=== PATIENT | male | born 1945 | race Caucasian/White ===

== ENCOUNTER 2017-09-05 23:59 | Inpatient (IN) ==
[2017-09-06] MEDS ORDERED: *HR* Morphine 2 MG/ML SYRINGE IVP PRN (00:55)
[2017-09-06] MEDS ORDERED: Acetaminophen 325 MG TABLET PO PRN (00:55)
[2017-09-06] MEDS ORDERED: Naloxone 0.4 MG/ML INJ IVP PRN (00:57)
[2017-09-06] MEDS ORDERED: Ketorolac 30 MG/ML VIAL IVP PRN (00:57)
[2017-09-06] MEDS ORDERED: Ondansetron 4 MG/2 ML VIAL IVP PRN (00:57)
[2017-09-06] MEDS ORDERED: *HR* Metoprolol 5 MG/5 ML VIAL IVP PRN ×2 (01:00→14:23)
--- NOTE | 2017-09-06 01:04 | Internal Med History&Physical ---
Date of Encounter: 09/06/17 Time of Encounter: 01:02 Assessment and Plan (1) Acute on chronic respiratory failure with hypoxia and hypercapnia Current visit: Yes Status: Acute Acute on chronic hypoxic hypercapnic respiratory failure secondary to acute COPD exacerbation and possible acute bacterial bronchitis Cannot rule out pneumonia at this point Repeat chest x-ray and continue Rocephin and azithromycin for now, May de- escalate antibiotic therapy at a later time Continue Solu-Medrol, BiPAP, may recheck another ABG Omeprazole for GI prophylaxis and subcutaneous heparin for DVT prophylaxis. The patient will be admitted as inpatient, expected to stay more than 2 midnights. DNR CC arrest DNI. Time spent on this admission 40 minutes, high risk due to respiratory failure (2) Acute exacerbation of COPD with asthma Current visit: Yes Status: Acute (3) Bronchitis Current visit: Yes Status: Acute (4) Accelerated hypertension Current visit: Yes Status: Acute Use hydralazine IV as needed (5) BPH (benign prostatic hyperplasia) Current visit: Yes Status: Acute Cannot take his Spiriva due to history of severe urinary retention, hold DuoNeb' s and use albuterol inhalers Qualifiers: Lower urinary tract symptom presence: unspecified whether lower urinary tract symptoms present Qualified Code(s): N40.0 - Benign prostatic hyperplasia without lower urinary tract symptoms Internal Medicine - H&P: HPI Chief complaint: Shortness of breath Admitted From: Emergency Dept History of present illness: Mr. Floyd is a 72 year old male with a past medical history of COPD oxygen dependent using 6 L at home, came transferred from [facility] complaining of difficulty breathing worse in the past 2 days. The patient complains of yellowish phlegm and low-grade fevers. At [facility], he desaturated down to 87 and had to be started on BiPAP due to severe hypercapnia. A pH showed a value of 7.34, PCO2 98 and a PO2 of 56. Hemoglobin was 9.6. Chest x-ray was reported as negative although no images or report has been sent from [facility] even though this was requested. Blood pressure was 157/80, heart rate is 128. Patient is a still in respiratory distress, was given Solu-Medrol and azithromycin. Denies any chest pain or other complaints. Past Med Surg Social Fam HX - Past Medical History Medical history: COPD (Oxygen dependent using 6 L), other (BPH and remote history of tobacco use until 1961) Psychiatric history: no psych history - Past Surgical History Surgical History: non-contributory (Cataracts) - Social History Smoking Status: Former smoker Packs per day: Until 1961 Smokeless Tobacco Status: No Alcohol use: none Drug use: none - Additional Family History Additional family history: Mother with unknown type of cancer Internal Medicine - H&P: Meds 3 Allergy/AdvReac Type Severity Reaction Status Date / Time tiotropium Allergy Back Pain Verified 09/06/17 00:18 [From Spiriva with HandiHaler] All Systems PM: A 10-system review of systems was performed and is negative for pertinent findings except as documented above in the HPI. Review of systems: Difficulty breathing, other systems out of the 10 review were negative. Patient has an adverse reaction to Spiriva with severe urinary retention - Constitutional Vitals: Temp Pulse Resp BP Pulse Ox 99.1 F 117 20 149/88 97 09/05/17 23:52 09/05/17 23:52 09/06/17 00:00 09/05/17 23:52 09/06/17 00:00 General appearance: Present: A&O X 3 - Head Head exam: Present: atraumatic, normocephalic - Eye Eye exam: Present: PERRL, conjuntiva pink, sclera anicteric Pupils: Present: PERRL - Neck Neck exam general surgery: Present: supple, trachea midline. Absent: lymphadenopathy - Respiratory Respiratory exam: Present: decreased breath sounds (Bilateral chest with severely diminished breath sounds in mild diffuse wheezing), CTAB. Absent: accessory muscle use, rales, rhonchi, wheezes - Cardiovascular Cardiovascular exam: Present: RRR, +S1, +S2. Absent: diastolic murmur, gallop, rubs, systolic murmur - GI/Abdominal GI/Abdominal exam: Present: normal bowel sounds, soft, no peritoneal signs. Absent: distended, tenderness - Extremities Exam Extremities exam: Present: warm, radial pulses palpable and symmetrical. Absent : calf tenderness, cyanotic, pedal edema - Neurological Exam Neurological exam: Present: CN II-XII intact, oriented X3, no focal deficits. Absent: pronater drift, facial droop, speech deficit - Skin Skin exam: Present: dry, intact Internal Med - H&P Results - Labs Labs: Vital cell count 5.8, hemoglobin 9.6, hematocrit 29.7, platelet is 167, sodium 140 potassium 4.1 chloride 92, BUN 10 glucose 100 creatinine 0.57, calcium 9.2 AST 25 ALT 21 alkaline phosphatase 72 troponin 0.1
[2017-09-06] MEDS ORDERED: *HR* LORazepam 2 MG/ML VIAL ONE (01:35)
[2017-09-06] MEDS: Azithromycin 500 MG in D5% in Water 250 ML IVPB SCH ×2 (01:42→21:20)
[2017-09-06] MEDS: MethylPREDNISolone 40 MG/ML VIAL IVP SCH ×4 (01:42→22:58)
[2017-09-06] MEDS: 0.9 % Sodium Chloride 1,000 ML IVC SCH ×2 (01:43→13:56)
[2017-09-06] MEDS: *HR* LORazepam 2 MG/ML VIAL IVP PRN (01:44)
[2017-09-06] MEDS: Albuterol 2.5 MG/3 ML NEBULIZER IH SCH ×5 (03:24→20:57)
[2017-09-06 03:37] LABS: Hemoglobin 8.5 g/dL (12.9-16.9)
[2017-09-06 03:39] LABS: Hematocrit 29.2 % (37.5-50.1); Immature Platelets 4.8 % (1.1-6.1); Mean Corpuscular HGB Conc 29.1 g/dL (31.6-35.5); Mean Corpuscular Volume 109.8 fL (83.0-100.0); Mean Platelet Volume 10.4 fL (9.4-12.4); Red Blood Count 2.66 M/mcL (4.19-5.50); Red Cell Distribution Width 13.3 % (11.5-14.5)
[2017-09-06 04:35] LABS: BUN/Creatinine Ratio 23 (6-26); Blood Urea Nitrogen 12 mg/dL (8-23); Calcium 8.9 mg/dL (8.6-10.3); Carbon Dioxide 46 mEq/L (23-29); Chloride 87 mEq/L (98-107); Glucose 200 mg/dL (70-105); Osmolality,Calculated 285 (280-300); Potassium 4.4 mEq/L (3.5-5.1); Sodium 135 mEq/L (136-145); eGFR For African Americans > 60 (> 60); eGFR For Non-African Americans > 60 (> 60)
[2017-09-06] MEDS: *HR* Heparin 5,000 UNIT/ML VIAL SQ SCH ×3 (06:58→21:21)
[2017-09-06] MEDS: cefTRIAXone 1,000 MG in Water for inj. (sterile) 10 ML IVP SCH (09:17)
--- NOTE | 2017-09-06 13:06 | Event Note ---
Date of Encounter: 09/06/17 Time of Encounter: 13:20 Patient is a 72y/o male admitted for acute on chronic respiratory failure with hypoxia and hypercapnia, acute exacerbation of COPD and accelerated HTN. CTA chest negative for PE, reported right PNA continue empiric ABX, IV steroids, bronchodilator support O2 supplementation monitor O2 sat, goal O2 sat: 88-92% Hydralazine 10mg IV q6h PRN SBP>160 Metoprolol 10mg IV q6h prn HR>100 with SBP>120 labs and vitals reviewed bipap support as needed and at bedtime will continue to closely monitor
[2017-09-06] MEDS ORDERED: *HR* OxyCODONE/APAP 5/325 TABLET PO PRN ×2 (14:24→14:58)
[2017-09-07] MEDS: Albuterol 2.5 MG/3 ML NEBULIZER IH SCH ×4 (03:28→21:24)
[2017-09-07 04:35] LABS: Basophils % 0.1 %; Hematocrit 30.8 % (37.5-50.1)
[2017-09-07 04:36] LABS: Hemoglobin 8.7 g/dL (12.9-16.9); Immature Granulocytes % 0.6 % (0-4); Lymphocytes # 0.2 K/mcL (0.6-4.6); Mean Corpuscular HGB Conc 28.2 g/dL (31.6-35.5); Mean Corpuscular Hemoglobin 32.1 pg (28.0-33.3); Mean Corpuscular Volume 113.7 fL (83.0-100.0); Mean Platelet Volume 10.6 fL (9.4-12.4); Monocytes # 0.3 K/mcL (0.0-1.3); Monocytes % 2.6 %; Platelet Count 159 K/mcL (140-400); Red Blood Count 2.71 M/mcL (4.19-5.50); Red Cell Distribution Width 13.5 % (11.5-14.5); Segmented Neutrophils % 94.7 %
[2017-09-07 05:07] LABS: BUN/Creatinine Ratio 36 (6-26); Blood Urea Nitrogen 21 mg/dL (8-23); Calcium 9.1 mg/dL (8.6-10.3); Carbon Dioxide 50 mEq/L (23-29); Chloride 92 mEq/L (98-107); Glucose 132 mg/dL (70-105); Magnesium 2.3 mg/dL (1.6-2.6); Osmolality,Calculated 297 (280-300); Potassium 5.1 mEq/L (3.5-5.1); Sodium 141 mEq/L (136-145); eGFR For African Americans > 60 (> 60); eGFR For Non-African Americans > 60 (> 60)
[2017-09-07] MEDS: *HR* Heparin 5,000 UNIT/ML VIAL SQ SCH ×3 (05:08→21:01)
[2017-09-07 05:46] LABS: Anisocytosis 1+ (Not Present); Hypochromasia Present (Not Present); Macrocytosis Present (Not Present); Polychromasia 1+ (Not Present)
[2017-09-07 05:47] LABS: Platelet Estimate Normal (Normal)
[2017-09-07] MEDS: cefTRIAXone 1,000 MG in Water for inj. (sterile) 10 ML IVP SCH (08:32)
[2017-09-07] MEDS: MethylPREDNISolone 40 MG/ML VIAL IVP SCH ×3 (08:32→23:42)
[2017-09-07] MEDS: Finasteride 5 MG TABLET PO SCH (08:32)
[2017-09-07 09:24] LABS: ABG Base Excess 23 mEq/L (-2 to 3); ABG HCO3 53 mEq/L (21-27); ABG Oxygen Saturation 71 % (95-98); ABG PCO2 97 mmHg (35-45); ABG PH 7.34 pH Units (7.32-7.45); ABG PO2 43 mmHg (85-104); ABG TCO2 56 mEq/L (20-26)
--- NOTE | 2017-09-07 10:30 | Internal Med Progress Note ---
<Bruce Mcclain - Last Filed: 09/07/17 15:31> Date of Encounter: 09/07/17 Time of Encounter: 09:00 - Assessment and plan (1) Acute on chronic respiratory failure with hypoxia and hypercapnia Current Visit: Yes Status: Acute Assessment and plan: Patient has acute on chronic hypoxic hypercapnic respiratory failure secondary to acute COPD exacerbation with an acute bacterial bronchitis/pneumonia. Patient did have CT of his chest which did rule out pulmonary embolism but did show a right-sided pneumonia. Patient is on Rocephin and azithromycin. He is always on 6 L of oxygen at home since he does go to 8 sometimes when he sleeps. He feels like he does need this much oxygen at this time. Patient was transferred from outside hospital for this admission. There he had an ABG which showed a pH is 7.34, CO2 98, O2 56. Continue Solu-Medrol, BiPAP ABG has been repeated which shows continual hypercapnia but looks like he does metabolically compensated for repeat chest x- ray did not show a pneumonia but we will continue treating due to CT scan findings. We will decrease his oxygen to 3-4 L to keep his saturations around 92% to keep him from being hypercapnic. (2) Community acquired pneumonia Current Visit: Yes Status: Acute Assessment and plan: Patient does have an elevated white blood cell count but there is no leukocytosis. We will continue to treat for his pneumonia with Rocephin and azithromycin. Patient tolerating this well. On discharge we will consider sending home on azithromycin to complete the seven -day course. Qualifiers: Laterality: right Lung location: lower lobe of lung Qualified Code(s): J18.1 - Lobar pneumonia, unspecified organism (3) Acute exacerbation of COPD with asthma Current Visit: Yes Status: Acute Assessment and plan: See acute on chronic respiratory failure with hypoxia and hypercapnia. Patient chronically on 6 L of oxygen at home. Says he needs more at this time. Patient currently getting Solu-Medrol and BiPAP as needed. (4) Bronchitis Current Visit: Yes Status: Acute Assessment and plan: Currently being treated as bacterial with the pneumonia with Rocephin and azithromycin. We will continue to trend. (5) Accelerated hypertension Current Visit: Yes Status: Acute Assessment and plan: Patient does have history of hypertension. Will order hydralazine 10 mg if his blood pressure systolic is over 160, metoprolol 10 mg if heart rate is over 100 and systolic is over 120. We will continue to monitor. (6) BPH (benign prostatic hyperplasia) Current Visit: Yes Status: Chronic Assessment and plan: Patient does have history of BPH. He cannot take Spiriva due to history of severe urinary retention. She will hold to nebs and use albuterol inhalers only. We will continue giving patient his tamsulosin. Qualifiers: Lower urinary tract symptom presence: unspecified whether lower urinary tract symptoms present Qualified Code(s): N40.0 - Benign prostatic hyperplasia without lower urinary tract symptoms - Subjective Interval history: Patient states he is beginning to feel a little better but still has having a hard time breathing. He says he is short of breath. He is unable to catch his breath when he is on the BiPAP. Patient states he is always on 6 L of oxygen which is chronic for him. Patient states he has no fevers, chills, chest pain, diarrhea, constipation, pain with urination or any other changes. Patient otherwise has no complaints. There are no overnight events. - Constitutional Vitals: Temp Pulse Resp BP Pulse Ox 97.7 F 80 14 114/79 100 09/07/17 06:42 09/07/17 06:42 09/07/17 06:42 09/07/17 06:42 09/07/17 06:42 General appearance: Present: A&O X 3, no acute distress, answers questions appropriately - Head Head exam: Present: atraumatic, normocephalic - Eye Eye exam: Present: PERRL, conjuntiva pink, sclera anicteric Pupils: Present: PERRL - Neck Neck exam general surgery: Present: supple, trachea midline. Absent: lymphadenopathy - Respiratory Respiratory exam: Present: decreased breath sounds (Bilaterally), wheezes ( Bilateral wheezes.). Absent: accessory muscle use, rales, respiratory distress , rhonchi, stridor - Cardiovascular Cardiovascular exam: Present: RRR, +S1, +S2. Absent: diastolic murmur, gallop, rubs, systolic murmur - GI/Abdominal GI/Abdominal exam: Present: normal bowel sounds, soft, no peritoneal signs. Absent: distended, tenderness - Extremities Exam Extremities exam: Present: warm, radial pulses palpable and symmetrical. Absent : calf tenderness, cyanotic, pedal edema - Neurological Exam Neurological exam: Present: CN II-XII intact, oriented X3, no focal deficits. Absent: pronater drift, facial droop, speech deficit - Skin Skin exam: Present: dry, intact Internal Medicine: Result - Labs CBC & Chem 7: 09/07/17 03:26 09/07/17 03:26 Labs: Short CBC 09/07/17 Range/Units 03:26 WBC 10.6 D (4.3-11.1) K/mcL Hgb 8.7 L (12.9-16.9) g/dL Hct 30.8 L (37.5-50.1) % Plt Count 159 (140-400) K/mcL Neutrophils # 10.0 H (1.6-8.9) K/mcL BMP 09/07/17 03:26 Sodium 141 Potassium 5.1 Chloride 92 L Carbon Dioxide 50 H* BUN 21 Creatinine 0.59 L Glucose 132 H Calcium 9.1 - ABG Interpretation ABG results: ABG ABG pH 7.34 pH Units (7.32-7.45) 09/07/17 09:20 ABG pCO2 97 mmHg (35-45) H* 09/07/17 09:20 ABG pO2 43 mmHg (85-104) L* 09/07/17 09:20 ABG O2 Saturation 71 % (95-98) L 09/07/17 09:20 Consult Discharge Plan - Plan Referrals: Liane Mckeon MD [Primary Care Provider] - <Nic Prabhakaraju T - Last Filed: 09/07/17 16:58> Date of Encounter: 09/07/17 - Constitutional Vitals: Temp Pulse Resp BP Pulse Ox 97.9 F 97 16 113/67 100 09/07/17 14:53 09/07/17 14:53 09/07/17 16:52 09/07/17 14:53 09/07/17 16:52 Internal Medicine: Result - Labs CBC & Chem 7: 09/07/17 03:26 09/07/17 03:26 Labs: Short CBC 09/07/17 Range/Units 03:26 WBC 10.6 D (4.3-11.1) K/mcL Hgb 8.7 L (12.9-16.9) g/dL Hct 30.8 L (37.5-50.1) % Plt Count 159 (140-400) K/mcL Neutrophils # 10.0 H (1.6-8.9) K/mcL BMP 09/07/17 03:26 Sodium 141 Potassium 5.1 Chloride 92 L Carbon Dioxide 50 H* BUN 21 Creatinine 0.59 L Glucose 132 H Calcium 9.1 - ABG Interpretation ABG results: ABG ABG pH 7.34 pH Units (7.32-7.45) 09/07/17 09:20 ABG pCO2 97 mmHg (35-45) H* 09/07/17 09:20 ABG pO2 43 mmHg (85-104) L* 09/07/17 09:20 ABG O2 Saturation 71 % (95-98) L 09/07/17 09:20 - Impressions Impressions Chest X-Ray 09/07/17 10:17 IMPRESSION: Stable chest with emphysematous changes in the lungs. No acute cardiopulmonary process is identified. D/ / Azam Barajas MD / Azam Barajas MD Interpreting Provider: Azam Barajas MD - Attending Attestation I examined this patient and my medical decision-making was reviewed with the Resident Physician on 09/07/17. I agree with the documented findings, disposition and treatment plan as described except to the extent set forth below. Seen and examined at the bedside 72-year-old male with medical history of chronic respiratory failure on home oxygen. He is admitted at being managed for acute on chronic hypoxic and hypercapnic respiratory failure secondary to COPD exacerbation and pneumonia. In addition, he has metabolic alkalosis, hypercapnia and patient is a chronic retainer. He denies new complaints. Physical examination is remarkable for cachexia, diminished air entry bilaterally with additional wheezes transmitted breath sounds. Labs and imaging reviewed CBC is unremarkable metabolic alkalosis with a serum bicarbonate of 50. ABG noted for PCO2 of 90. PH is normal. Plan is to continue current care, ensure use of BiPAP, social work evaluation for BiPAP at home. Goal Oxygen saturation is 88-92%. GIve 500cc bolus. Plan of care was discussed with the patient and he verbalizes understanding. Rest of details as in the resident physicians documentation.
[2017-09-07] MEDS: Azithromycin 500 MG in D5% in Water 250 ML IVPB SCH (21:01)
[2017-09-08] MEDS: Albuterol 2.5 MG/3 ML NEBULIZER IH SCH ×4 (03:34→22:18)
[2017-09-08] MEDS: *HR* Heparin 5,000 UNIT/ML VIAL SQ SCH ×3 (05:15→21:40)
[2017-09-08 07:21] LABS: Basophils % 0.1 %; Hemoglobin 9.3 g/dL (12.9-16.9)
[2017-09-08 07:23] LABS: Hematocrit 33.6 % (37.5-50.1); Immature Granulocytes % 0.6 % (0-4); Lymphocytes # 0.3 K/mcL (0.6-4.6); Mean Corpuscular HGB Conc 27.7 g/dL (31.6-35.5); Mean Corpuscular Hemoglobin 31.2 pg (28.0-33.3); Mean Corpuscular Volume 112.8 fL (83.0-100.0); Mean Platelet Volume 10.1 fL (9.4-12.4); Monocytes # 0.4 K/mcL (0.0-1.3); Monocytes % 3.1 %; Neutrophils # 11.9 K/mcL (1.6-8.9); Platelet Count 183 K/mcL (140-400); Red Blood Count 2.98 M/mcL (4.19-5.50); Red Cell Distribution Width 13.6 % (11.5-14.5); Segmented Neutrophils % 94.2 %
[2017-09-08] MEDS: MethylPREDNISolone 40 MG/ML VIAL IVP SCH ×2 (07:33→17:22)
[2017-09-08] MEDS: Finasteride 5 MG TABLET PO SCH (07:33)
[2017-09-08] MEDS: cefTRIAXone 1,000 MG in Water for inj. (sterile) 10 ML IVP SCH (07:33)
--- NOTE | 2017-09-08 08:12 | Internal Med Progress Note ---
<Bruce Mcclain - Last Filed: 09/08/17 12:26> Date of Encounter: 09/08/17 Time of Encounter: 08:12 - Assessment and plan (1) Acute on chronic respiratory failure with hypoxia and hypercapnia Current Visit: Yes Status: Acute Assessment and plan: Patient has acute on chronic hypoxic hypercapnic respiratory failure secondary to acute COPD exacerbation with an acute bacterial bronchitis/pneumonia. Patient did have CT of his chest which did rule out pulmonary embolism but did show a right-sided pneumonia. Patient is on Rocephin and azithromycin. He is always on 6 L of oxygen at home since he does go to 8 sometimes when he sleeps. He feels like he does need this much oxygen at this time. Patient was transferred from outside hospital for this admission. There he had an ABG which showed a pH is 7.34, CO2 98, O2 56. Continue Solu-Medrol, BiPAP ABG has been repeated which shows continual hypercapnia but looks like he does metabolically compensated for repeat chest x- ray did not show a pneumonia but we will continue treating due to CT scan findings. We will decrease his oxygen to 3-4 L to keep his saturations around 92% to keep him from being hypercapnic. He will continue to use bi-pap as needed to help with is breathing. Due to patient slightly hard time breathing and not progressing as well as he would like this could be end-stage COPD. We will get pulmonology consultation. We will await their recommendations (2) Community acquired pneumonia Current Visit: Yes Status: Acute Assessment and plan: Patient does have an elevated white blood cell count but there is no leukocytosis. We will continue to treat for his pneumonia with Rocephin and azithromycin. Day 2 of rocephin and azithromycin Patient tolerating this well. On discharge we will consider sending home on azithromycin to complete the seven -day course. Qualifiers: Laterality: right Lung location: lower lobe of lung Qualified Code(s): J18.1 - Lobar pneumonia, unspecified organism (3) Acute exacerbation of COPD with asthma Current Visit: Yes Status: Acute Assessment and plan: See acute on chronic respiratory failure with hypoxia and hypercapnia. Patient chronically on 6 L of oxygen at home. Says he needs more at this time. Patient currently getting Solu-Medrol and BiPAP as needed. We will continue to ween down so he becomes less hypercapneic (4) Bronchitis Current Visit: Yes Status: Acute Assessment and plan: Currently being treated as bacterial with the pneumonia with Rocephin and azithromycin. We will continue to trend. (5) Accelerated hypertension Current Visit: Yes Status: Acute Assessment and plan: Patient does have history of hypertension. Will order hydralazine 10 mg if his blood pressure systolic is over 160, metoprolol 10 mg if heart rate is over 100 and systolic is over 120. We will continue to monitor. (6) BPH (benign prostatic hyperplasia) Current Visit: Yes Status: Chronic Assessment and plan: Patient does have history of BPH. He cannot take Spiriva due to history of severe urinary retention. She will hold to nebs and use albuterol inhalers only. We will continue giving patient his tamsulosin. Qualifiers: Lower urinary tract symptom presence: unspecified whether lower urinary tract symptoms present Qualified Code(s): N40.0 - Benign prostatic hyperplasia without lower urinary tract symptoms - Subjective Interval history: Patient states he is the same as yesterday no better or worse. He is still short of breath and now that we are weenign his oxygen down to help with hypercapnia he says he feels like he can't breath and needs more oxygen. He had to use bipap overnight which does help him feel better. Pt other christie is not having any chest pain, abdominal pain, fevers, chills, changes in bowel movements, pain with urination or any other symptoms. PT has no other complaints and there were no overnight events. - Constitutional Vitals: Temp Pulse Resp BP Pulse Ox 97.5 F L 80 19 138/73 96 09/08/17 06:44 09/08/17 06:44 09/08/17 06:44 09/08/17 06:44 09/08/17 06:44 General appearance: Present: A&O X 3, no acute distress, answers questions appropriately - Head Head exam: Present: atraumatic, normocephalic - Eye Eye exam: Present: PERRL, conjuntiva pink, sclera anicteric Pupils: Present: PERRL - Neck Neck exam general surgery: Present: supple, trachea midline. Absent: lymphadenopathy - Respiratory Respiratory exam: Present: decreased breath sounds, prolonged expiratory phase, rhonchi (mild in bases bilaterally). Absent: accessory muscle use, rales, wheezes - Cardiovascular Cardiovascular exam: Present: RRR, +S1, +S2. Absent: diastolic murmur, gallop, rubs, systolic murmur - GI/Abdominal GI/Abdominal exam: Present: normal bowel sounds, soft, no peritoneal signs. Absent: distended, tenderness - Extremities Exam Extremities exam: Present: warm, radial pulses palpable and symmetrical. Absent : calf tenderness, cyanotic, pedal edema - Neurological Exam Neurological exam: Present: CN II-XII intact, oriented X3, no focal deficits. Absent: pronater drift, facial droop, speech deficit - Skin Skin exam: Present: dry, intact Internal Medicine: Result - Labs CBC & Chem 7: 09/08/17 07:06 09/08/17 07:06 Labs: Short CBC 09/08/17 Range/Units 07:06 WBC 12.6 H (4.3-11.1) K/mcL Hgb 9.3 L (12.9-16.9) g/dL Hct 33.6 L (37.5-50.1) % Plt Count 183 (140-400) K/mcL - ABG Interpretation ABG results: ABG ABG pH 7.34 pH Units (7.32-7.45) 09/07/17 09:20 ABG pCO2 97 mmHg (35-45) H* 09/07/17 09:20 ABG pO2 43 mmHg (85-104) L* 09/07/17 09:20 ABG O2 Saturation 71 % (95-98) L 09/07/17 09:20 - Impressions Impressions Chest X-Ray 09/07/17 10:17 IMPRESSION: Stable chest with emphysematous changes in the lungs. No acute cardiopulmonary process is identified. D/ / Azam Barajas MD / Azam Barajas MD Interpreting Provider: Azam Barajas MD Consult Discharge Plan - Plan Referrals: Liane Mckeon MD [Primary Care Provider] - <Jadon Prabhakar T - Last Filed: 09/08/17 14:41> Date of Encounter: 09/08/17 - Constitutional Vitals: Temp Pulse Resp BP Pulse Ox 97.4 F L 92 16 120/67 100 09/08/17 12:12 09/08/17 12:12 09/08/17 12:12 09/08/17 12:12 09/08/17 12:12 Internal Medicine: Result - Labs CBC & Chem 7: 09/08/17 07:06 09/08/17 07:06 Labs: Short CBC 09/08/17 Range/Units 07:06 WBC 12.6 H (4.3-11.1) K/mcL Hgb 9.3 L (12.9-16.9) g/dL Hct 33.6 L (37.5-50.1) % Plt Count 183 (140-400) K/mcL Neutrophils # 11.9 H (1.6-8.9) K/mcL BMP 09/08/17 07:06 Sodium 144 Potassium 4.4 Chloride 93 L Carbon Dioxide 51 H* BUN 25 H Creatinine 0.55 L Glucose 140 H Calcium 8.8 - ABG Interpretation ABG results: ABG ABG pH 7.34 pH Units (7.32-7.45) 09/07/17 09:20 ABG pCO2 97 mmHg (35-45) H* 09/07/17 09:20 ABG pO2 43 mmHg (85-104) L* 09/07/17 09:20 ABG O2 Saturation 71 % (95-98) L 09/07/17 09:20 - Attending Attestation I examined this patient and my medical decision-making was reviewed with the Resident Physician on 09/08/17. I agree with the documented findings, disposition and treatment plan as described except to the extent set forth below. Seen and examined at the bedside 72-year-old male with medical history of chronic respiratory failure on home oxygen. He is admitted at being managed for acute on chronic hypoxic and hypercapnic respiratory failure secondary to COPD exacerbation and pneumonia. In addition, he has metabolic alkalosis, hypercapnia and patient is a chronic retainer. He denies new complaints. He feels that he is more short of breath today than usual. He is still symptomatic, he is also saying he prefers to wear O2 and have it on 100%, despite education on the goal of his O2 Physical examination is remarkable for cachexia, diminished air entry bilaterally with additional wheezes transmitted breath sounds. NO rhonchi Labs and imaging reviewed Worsening metabolic alkalosis, ABG not repeated Plan is to consult pulmonology for this advanced COPDE, continue current care, ensure use of BiPAP with breaks for meals, social work evaluation for BiPAP at home. Goal Oxygen saturation is 88-92%. Replace potassium, repeat Chem am Rest of details as in the resident physicians documentation.
[2017-09-08 08:37] LABS: Sodium 144 mEq/L (136-145)
[2017-09-08 08:38] LABS: BUN/Creatinine Ratio 45 (6-26); Blood Urea Nitrogen 25 mg/dL (8-23); Calcium 8.8 mg/dL (8.6-10.3); Chloride 93 mEq/L (98-107); Glucose 140 mg/dL (70-105); Osmolality,Calculated 305 (280-300); Potassium 4.4 mEq/L (3.5-5.1); eGFR For African Americans > 60 (> 60); eGFR For Non-African Americans > 60 (> 60)
[2017-09-08 08:40] LABS: Carbon Dioxide 51 mEq/L (23-29)
[2017-09-08 08:43] LABS: Anisocytosis 1+ (Not Present); Macrocytosis Present (Not Present)
[2017-09-08 08:44] LABS: Hypochromasia Present (Not Present); Platelet Estimate Normal (Normal)
--- NOTE | 2017-09-08 12:56 | Pulmonology Consult Note ---
Date of Encounter: 09/08/17 Time of Encounter: 12:30 Assessment and Plan (1) Acute on chronic respiratory failure with hypoxia and hypercapnia Current Visit: Yes Status: Acute Patient coming with acute on chronic hypoxia and hypercapnic respiratory failure secondary to COPD exacerbation complicated by pneumonia once he is getting better patient will benefit from home BIPAP will need BIPAP qualification before discharge . To continue gentle diuresis as tolerated . (2) COPD with exacerbation Current Visit: Yes Status: Acute To continue with scheduled bronchodilators , steroids and antibiotics as outpatient he will need frequent follow up . (3) Community acquired pneumonia Current Visit: Yes Status: Acute To change to doxycycline and to continue ceftriaxone . Qualifiers: Laterality: right Lung location: lower lobe of lung Qualified Code(s): J18.1 - Lobar pneumonia, unspecified organism History of Present Illness Consult date: 09/08/17 Requesting physician: Bruce Mcclain Reason for consult: COPD, pneumonia Chief complaint: shortness of breadth History of present illness: 72 year old male with past medical history of end stage COPD , O2 dependent was admitted under hospitalist service for acute on chronic hypoxic and hypercapnic respiratory failure , COPD exacerbation complicated by pneumonia , patient was put on BIPAP slowly improving , patient is on BIPAP poor historian , say his shortness of breadth is slightly better ,denies any chest pain or tightness pulmonary was consulted for the managment of acute on chronic hypercapnic respiratory failure and COPD exacerbation for outpatient follow up. Past Med Surg Social Fam HX - Past Medical History Medical history: COPD (Oxygen dependent using 6 L), other (BPH and remote history of tobacco use until 1961) Psychiatric history: no psych history - Past Surgical History Surgical History: non-contributory (Cataracts) - Social History Smoking Status: Former smoker Packs per day: Until 1961 Smokeless Tobacco Status: No Alcohol use: none Drug use: none Medications and Allergies Albuterol Sulfate [Albuterol Inhaler] 1 - 2 puff IH Q6H PRN 09/06/17 [History] Alfuzosin HCl [Uroxatral] 10 mg PO DAILY 09/06/17 [History] Budesonide/Formoterol 160/4.5 [Symbicort 160/4.5] 2 puff IH BID 09/06/17 [ History] Finasteride [Proscar] 5 mg PO DAILY 09/06/17 [History] Naproxen [Naproxen] 500 mg PO BID 09/06/17 [History] Oxycodone HCl/Acetaminophen [Percocet 5-325 mg Tablet] 1 tab PO Q6H PRN [History] Tamsulosin [Flomax] 0.4 mg PO DAILY 09/06/17 [History] Umeclidinium [place] [Incruse Ellipta] 1 puff IH DAILY 09/06/17 [History] 3 Allergy/AdvReac Type Severity Reaction Status Date / Time tiotropium Allergy Back Pain Verified 09/06/17 00:18 [From Spiriva with HandiHaler] ROS unobtainable: due to mental status All Systems: A 10-system review of systems was performed and is negative for pertinent findings except as documented above in the HPI. Physical Examination Vital Signs: Vital Signs, Last 4 Hours Temp Pulse Resp BP Pulse Ox 09/08/17 12:12 97.4 F L 92 16 120/67 100 09/08/17 11:09 15 138/73 100 Effort: mildly labored Auscultation: bilateral: wheezes (scattered wheezes ) unable to assess due to mental status Results - Laboratory Findings CBC and BMP: 09/08/17 07:06 09/08/17 07:06 ABG ABG pH 7.34 pH Units (7.32-7.45) 09/07/17 09:20 ABG pCO2 97 mmHg (35-45) H* 09/07/17 09:20 ABG pO2 43 mmHg (85-104) L* 09/07/17 09:20 ABG O2 Saturation 71 % (95-98) L 09/07/17 09:20 Abnormal lab findings: Abnormal lab results WBC 12.6 K/mcL (4.3-11.1) H 09/08/17 07:06 RBC 2.98 M/mcL (4.19-5.50) L 09/08/17 07:06 Hgb 9.3 g/dL (12.9-16.9) L 09/08/17 07:06 Hct 33.6 % (37.5-50.1) L 09/08/17 07:06 MCV 112.8 fL (83.0-100.0) H 09/08/17 07:06 MCHC 27.7 g/dL (31.6-35.5) L 09/08/17 07:06 Neutrophils # 11.9 K/mcL (1.6-8.9) H 09/08/17 07:06 Lymphocytes # 0.3 K/mcL (0.6-4.6) L 09/08/17 07:06 Polychromasia 1+ (Not Present) A 09/07/17 03:26 Hypochromasia Present (Not Present) A 09/08/17 07:06 Anisocytosis 1+ (Not Present) A 09/08/17 07:06 Macrocytosis Present (Not Present) A 09/08/17 07:06 ABG pCO2 97 mmHg (35-45) H* 09/07/17 09:20 ABG pO2 43 mmHg (85-104) L* 09/07/17 09:20 ABG HCO3 53 mEq/L (21-27) H 09/07/17 09:20 ABG Total CO2 56 mEq/L (20-26) H 09/07/17 09:20 ABG O2 Saturation 71 % (95-98) L 09/07/17 09:20 ABG Base Excess 23 mEq/L (-2 to 3) H 09/07/17 09:20 Chloride 93 mEq/L (98-107) L 09/08/17 07:06 Carbon Dioxide 51 mEq/L (23-29) H* 09/08/17 07:06 BUN 25 mg/dL (8-23) H 09/08/17 07:06 Creatinine 0.55 mg/dL (0.70-1.30) L 09/08/17 07:06 BUN/Creatinine Ratio 45 (6-26) H 09/08/17 07:06 Glucose 140 mg/dL (70-105) H 09/08/17 07:06 Calculated Osmolality 305 (280-300) H 09/08/17 07:06 - Clinical Findings Intake & Output: Intake & Output 09/07/17 09/08/17 09/08/17 23:59 07:59 15:59 Intake Total 480 / 480 0 / 0 Output Total 500 / 500 350 / 350 175 / 175 Balance -20 / -20 -350 / -350 -175 / -175 Weight 50.7 kg Consult Discharge Plan - Plan Referrals: Liane Mckeon MD [Primary Care Provider] -
[2017-09-08 15:53] LABS: Adenovirus Not Detected (Not Detect); Bordetella Pertussis Not Detected (Not Detect); Chlamydophila pneumoniae Not Detected (Not Detect); Coronavirus 229E Not Detected (Not Detect); Coronavirus HKU1 Not Detected (Not Detect); Coronavirus NL63 Not Detected (Not Detect); Coronavirus OC43 Not Detected (Not Detect); Human Metapneumovirus Not Detected (Not Detect); Human Rhinovirus/Enterovirus Not Detected (Not Detect); Influenza A Subtype 2009 H1 Not Detected (Not Detect); Influenza A Untypeable Not Detected (Not Detect); Influenza B Not Detected (Not Detect); Mycoplasma pneumoniae Not Detected (Not Detect); Parainfluenza Virus 1 Not Detected (Not Detect); Parainfluenza Virus 2 Not Detected (Not Detect); Parainfluenza Virus 3 Not Detected (Not Detect); Parainfluenza Virus 4 Not Detected (Not Detect); Respiratory Syncytial Virus Not Detected (Not Detect)
[2017-09-08] MEDS: Budesonide/Formoterol 80/4.5 MDI IH SCH ×2 (15:56→22:18)
[2017-09-08] MEDS: Doxycycline 100 MG in 0.9 % Sodium Chloride Mini Bag 100 ML IVPB SCH (17:29)
[2017-09-09] MEDS: MethylPREDNISolone 40 MG/ML VIAL IVP SCH ×4 (00:36→23:40)
[2017-09-09] MEDS: Albuterol 2.5 MG/3 ML NEBULIZER IH SCH ×4 (03:59→21:44)
[2017-09-09] MEDS: *HR* Heparin 5,000 UNIT/ML VIAL SQ SCH ×3 (05:10→23:40)
[2017-09-09] MEDS ORDERED: Doxycycline 100 MG in 0.9 % Sodium Chloride Mini Bag 100 ML IVPB SCH (06:00)
[2017-09-09 06:06] LABS: Basophils % 0.1 %; Hemoglobin 9.5 g/dL (12.9-16.9); Mean Corpuscular HGB Conc 27.9 g/dL (31.6-35.5)
[2017-09-09 06:08] LABS: Hematocrit 34.1 % (37.5-50.1); Immature Granulocytes % 1.6 % (0-4); Lymphocytes # 0.3 K/mcL (0.6-4.6); Lymphocytes % 2.8 %; Mean Corpuscular Hemoglobin 31.6 pg (28.0-33.3); Mean Corpuscular Volume 113.3 fL (83.0-100.0); Mean Platelet Volume 10.4 fL (9.4-12.4); Monocytes # 0.3 K/mcL (0.0-1.3); Monocytes % 2.5 %; Neutrophils # 9.9 K/mcL (1.6-8.9); Platelet Count 183 K/mcL (140-400); Red Blood Count 3.01 M/mcL (4.19-5.50); Red Cell Distribution Width 13.4 % (11.5-14.5)
[2017-09-09 06:30] LABS: Hypochromasia Present (Not Present); Macrocytosis Present (Not Present); Platelet Estimate Normal (Normal)
[2017-09-09 06:34] LABS: BUN/Creatinine Ratio 45 (6-26); Blood Urea Nitrogen 25 mg/dL (8-23); Calcium 8.9 mg/dL (8.6-10.3); Chloride 94 mEq/L (98-107); Glucose 144 mg/dL (70-105); Osmolality,Calculated 307 (280-300); Potassium 4.9 mEq/L (3.5-5.1); Sodium 145 mEq/L (136-145); eGFR For African Americans > 60 (> 60); eGFR For Non-African Americans > 60 (> 60)
[2017-09-09 07:42] LABS: Carbon Dioxide > 45 mEq/L (23-29)
--- NOTE | 2017-09-09 08:03 | Internal Med Progress Note ---
<Bruce Mcclain - Last Filed: 09/09/17 14:56> Date of Encounter: 09/09/17 Time of Encounter: 08:03 - Assessment and plan (1) Acute on chronic respiratory failure with hypoxia and hypercapnia Current Visit: Yes Status: Acute Assessment and plan: Patient has acute on chronic hypoxic hypercapnic respiratory failure secondary to acute COPD exacerbation with an acute bacterial bronchitis/pneumonia. Patient did have CT of his chest which did rule out pulmonary embolism but did show a right-sided pneumonia. Patient is on Rocephin and azithromycin. He is always on 6 L of oxygen at home since he does go to 8 sometimes when he sleeps. He feels like he does need this much oxygen at this time. Patient was transferred from outside hospital for this admission. There he had an ABG which showed a pH is 7.34, CO2 98, O2 56. Continue Solu-Medrol, BiPAP ABG has been repeated which shows continual hypercapnia but looks like he does metabolically compensated for repeat chest x- ray did not show a pneumonia but we will continue treating due to CT scan findings. We will decrease his oxygen to 3-4 L to keep his saturations around 92% to keep him from being hypercapnic. He will continue to use bi-pap as needed to help with is breathing. Pulmonology recommendations are appreciated. He was changed from azithromycin to doxycycline. Also started on Symbicort inhalers. Did recommend outpatient follow-up after patient's hospital stay. They also recommended continuous BiPAP taking 2 hour breaks around feeding. These have all been started. (2) Community acquired pneumonia Current Visit: Yes Status: Acute Assessment and plan: Patient does have an elevated white blood cell count but there is no leukocytosis. We will continue to treat for his pneumonia with Rocephin and azithromycin. Day 3 of Rocephin. Today was changed to doxycycline from azithromycin. Patient tolerating this well. Qualifiers: Laterality: right Lung location: lower lobe of lung Qualified Code(s): J18.1 - Lobar pneumonia, unspecified organism (3) Acute exacerbation of COPD with asthma Current Visit: Yes Status: Acute Assessment and plan: See acute on chronic respiratory failure with hypoxia and hypercapnia. Patient chronically on 6 L of oxygen at home. Says he needs more at this time. Patient currently getting Solu-Medrol and BiPAP as needed. We will continue to ween down so he becomes less hypercapneic (4) Bronchitis Current Visit: Yes Status: Acute Assessment and plan: Currently being treated as bacterial with the pneumonia with Rocephin and azithromycin. We will continue to trend. (5) Accelerated hypertension Current Visit: Yes Status: Acute Assessment and plan: Patient does have history of hypertension. Will order hydralazine 10 mg if his blood pressure systolic is over 160, metoprolol 10 mg if heart rate is over 100 and systolic is over 120. We will continue to monitor. (6) BPH (benign prostatic hyperplasia) Current Visit: Yes Status: Chronic Assessment and plan: Patient does have history of BPH. He cannot take Spiriva due to history of severe urinary retention. She will hold to nebs and use albuterol inhalers only. We will continue giving patient his tamsulosin. Qualifiers: Lower urinary tract symptom presence: unspecified whether lower urinary tract symptoms present Qualified Code(s): N40.0 - Benign prostatic hyperplasia without lower urinary tract symptoms - Subjective Interval history: Patient states he is better than he was yesterday. Feels that he has had a little easier time breathing. He is still short of breath and now that we are weenign his oxygen down to help with hypercapnia he says he feels like he can't breath and needs more oxygen. He has been using BiPAP overnight as well as during the day only taking to her arrest per pulmonology's request. He says he does better when he is on the BiPAP. Pt other christie is not having any chest pain , abdominal pain, fevers, chills, changes in bowel movements, pain with urination or any other symptoms. PT has no other complaints and there were no overnight events. - Constitutional Vitals: Temp Pulse Resp BP Pulse Ox 97.8 F 90 14 152/90 100 09/09/17 04:53 09/09/17 04:53 09/09/17 04:53 09/09/17 04:53 09/09/17 04:53 General appearance: Present: A&O X 3, no acute distress, answers questions appropriately - Head Head exam: Present: atraumatic, normocephalic - Eye Eye exam: Present: PERRL, conjuntiva pink, sclera anicteric Pupils: Present: PERRL - Neck Neck exam general surgery: Present: supple, trachea midline. Absent: lymphadenopathy - Respiratory Respiratory exam: Present: decreased breath sounds, wheezes (Mild wheezes in the bases bilaterally). Absent: accessory muscle use, rales, respiratory distress, rhonchi - Cardiovascular Cardiovascular exam: Present: RRR, +S1, +S2. Absent: diastolic murmur, gallop, rubs, systolic murmur - GI/Abdominal GI/Abdominal exam: Present: normal bowel sounds, soft, no peritoneal signs. Absent: distended, tenderness - Extremities Exam Extremities exam: Present: warm, radial pulses palpable and symmetrical. Absent : calf tenderness, cyanotic, pedal edema - Neurological Exam Neurological exam: Present: CN II-XII intact, oriented X3, no focal deficits. Absent: pronater drift, facial droop, speech deficit - Skin Skin exam: Present: dry, intact Internal Medicine: Result - Labs CBC & Chem 7: 09/09/17 05:43 09/09/17 05:43 Labs: Short CBC 09/08/17 09/09/17 Range/Units 07:06 05:43 WBC 10.6 (4.3-11.1) K/mcL Hgb 9.5 L (12.9-16.9) g/dL Hct 34.1 L (37.5-50.1) % Plt Count 183 (140-400) K/mcL Neutrophils # 11.9 H 9.9 H (1.6-8.9) K/mcL BMP 09/08/17 09/09/17 07:06 05:43 Sodium 144 145 Potassium 4.4 4.9 Chloride 93 L 94 L Carbon Dioxide 51 H* > 45 H* BUN 25 H 25 H Creatinine 0.55 L 0.55 L Glucose 140 H 144 H Calcium 8.8 8.9 - ABG Interpretation ABG results: ABG ABG pH 7.34 pH Units (7.32-7.45) 09/07/17 09:20 ABG pCO2 97 mmHg (35-45) H* 09/07/17 09:20 ABG pO2 43 mmHg (85-104) L* 09/07/17 09:20 ABG O2 Saturation 71 % (95-98) L 09/07/17 09:20 Consult Discharge Plan - Plan Referrals: Liane Mckeon MD [Primary Care Provider] - <Jadon Prabhakar T - Last Filed: 09/09/17 16:33> Date of Encounter: 09/09/17 - Constitutional Vitals: Temp Pulse Resp BP Pulse Ox 97.7 F 92 16 126/77 98 09/09/17 12:00 09/09/17 12:00 09/09/17 15:23 09/09/17 12:00 09/09/17 15:23 Internal Medicine: Result - Labs CBC & Chem 7: 09/09/17 05:43 09/09/17 05:43 Labs: Short CBC 09/09/17 Range/Units 05:43 WBC 10.6 (4.3-11.1) K/mcL Hgb 9.5 L (12.9-16.9) g/dL Hct 34.1 L (37.5-50.1) % Plt Count 183 (140-400) K/mcL Neutrophils # 9.9 H (1.6-8.9) K/mcL BMP 09/09/17 05:43 Sodium 145 Potassium 4.9 Chloride 94 L Carbon Dioxide > 45 H* BUN 25 H Creatinine 0.55 L Glucose 144 H Calcium 8.9 - ABG Interpretation ABG results: ABG ABG pH 7.34 pH Units (7.32-7.45) 09/07/17 09:20 ABG pCO2 97 mmHg (35-45) H* 09/07/17 09:20 ABG pO2 43 mmHg (85-104) L* 09/07/17 09:20 ABG O2 Saturation 71 % (95-98) L 09/07/17 09:20 - Attending Attestation I examined this patient and my medical decision-making was reviewed with the Resident Physician on 09/09/17. I agree with the documented findings, disposition and treatment plan as described except to the extent set forth below. Seen and examined at the bedside 72-year-old male with medical history of chronic respiratory failure on home oxygen. He is admitted at being managed for acute on chronic hypoxic and hypercapnic respiratory failure secondary to COPD exacerbation and pneumonia. In addition, he has metabolic alkalosis, hypercapnia and patient is a chronic retainer. He denies new complaints. He feels that he is more short of breath today than usual. Pulmonology eval noted At this time, patient's COPD is end stage and he is educated about this Physical examination is remarkable for cachexia, diminished air entry bilaterally with no additional wheezes transmitted breath sounds. NO rhonchi, abdomen is soft and not tender, no pedal edema Labs and imaging reviewed Stable metabolic alkalosis, ABG not repeated Plan Repalce K BiPAP qualification overnight Continue current care Rest of details as in the resident physicians documentation
[2017-09-09] MEDS: Budesonide/Formoterol 80/4.5 MDI IH SCH ×2 (09:50→21:44)
[2017-09-09] MEDS: Finasteride 5 MG TABLET PO SCH (10:13)
[2017-09-09] MEDS: cefTRIAXone 1,000 MG in Water for inj. (sterile) 10 ML IVP SCH (10:13)
[2017-09-09] MEDS: Doxycycline 100 MG in 0.9 % Sodium Chloride Mini Bag 100 ML IVPB SCH ×2 (17:57→18:00)
--- NOTE | 2017-09-09 22:55 | Pulmonology Progress Note ---
Date of Encounter: 09/09/17 Time of Encounter: 14:00 Assessment and Plan (1) Acute on chronic respiratory failure with hypoxia and hypercapnia Current Visit: Yes Status: Acute secondary to COPD exacerbation please do home BIPAP qualification according to protocol (2) COPD with exacerbation Current Visit: Yes Status: Acute To continue bronchodilators , steroids and antibiotics on discharge will need 12 day taper of steroids , total 7 days of antibiotics will need duo neb nebulizer , Symbicort and Spiriva should follow up in 8 weeks after discharge either in [facility] or at [facility] patient preference (3) Community acquired pneumonia Current Visit: Yes Status: Acute Will continue antibiotics if getting better then start deescalating . Qualifiers: Laterality: right Lung location: lower lobe of lung Qualified Code(s): J18.1 - Lobar pneumonia, unspecified organism Subjective Principal diagnosis: COPD exacerbation Interval history: Patient is off BIPAP on Nasal cannula having his dinner his cough and sputum production is lot better , shortness of breadth is lot better. Objective PUL Vital signs: Last Vital Signs Temp 98.8 F 09/09/17 21:11 Pulse 113 09/09/17 21:11 Resp 19 09/09/17 21:11 BP 127/90 09/09/17 21:11 Pulse Ox 99 09/09/17 21:11 Auscultation: bilateral: wheezes Results - Laboratory Findings CBC and BMP: 09/09/17 05:43 09/09/17 05:43 ABG ABG pH 7.34 pH Units (7.32-7.45) 09/07/17 09:20 ABG pCO2 97 mmHg (35-45) H* 09/07/17 09:20 ABG pO2 43 mmHg (85-104) L* 09/07/17 09:20 ABG O2 Saturation 71 % (95-98) L 09/07/17 09:20 Abnormal lab findings: Abnormal lab results RBC 3.01 M/mcL (4.19-5.50) L 09/09/17 05:43 Hgb 9.5 g/dL (12.9-16.9) L 09/09/17 05:43 Hct 34.1 % (37.5-50.1) L 09/09/17 05:43 MCV 113.3 fL (83.0-100.0) H 09/09/17 05:43 MCHC 27.9 g/dL (31.6-35.5) L 09/09/17 05:43 Neutrophils # 9.9 K/mcL (1.6-8.9) H 09/09/17 05:43 Lymphocytes # 0.3 K/mcL (0.6-4.6) L 09/09/17 05:43 Polychromasia 1+ (Not Present) A 09/07/17 03:26 Hypochromasia Present (Not Present) A 09/09/17 05:43 Anisocytosis 1+ (Not Present) A 09/08/17 07:06 Macrocytosis Present (Not Present) A 09/09/17 05:43 ABG pCO2 97 mmHg (35-45) H* 09/07/17 09:20 ABG pO2 43 mmHg (85-104) L* 09/07/17 09:20 ABG HCO3 53 mEq/L (21-27) H 09/07/17 09:20 ABG Total CO2 56 mEq/L (20-26) H 09/07/17 09:20 ABG O2 Saturation 71 % (95-98) L 09/07/17 09:20 ABG Base Excess 23 mEq/L (-2 to 3) H 09/07/17 09:20 Chloride 94 mEq/L (98-107) L 09/09/17 05:43 Carbon Dioxide > 45 mEq/L (23-29) H* 09/09/17 05:43 BUN 25 mg/dL (8-23) H 09/09/17 05:43 Creatinine 0.55 mg/dL (0.70-1.30) L 09/09/17 05:43 BUN/Creatinine Ratio 45 (6-26) H 09/09/17 05:43 Glucose 144 mg/dL (70-105) H 09/09/17 05:43 Calculated Osmolality 307 (280-300) H 09/09/17 05:43 - Clinical Findings Intake & Output: Intake & Output 09/09/17 09/09/17 09/09/17 07:59 15:59 23:59 Intake Total 200 / 200 240 / 240 120 / 120 Output Total 400 / 400 275 / 275 450 / 450 Balance -200 / -200 -35 / -35 -330 / -330 Weight 51.4 kg Consult Discharge Plan - Plan Referrals: Liane Mckeon MD [Primary Care Provider] -
[2017-09-10 03:08] LABS: Basophils % 0.1 %; Hemoglobin 9.2 g/dL (12.9-16.9); Immature Granulocytes % 1.2 % (0-4); Mean Corpuscular Hemoglobin 31.6 pg (28.0-33.3); Red Blood Count 2.91 M/mcL (4.19-5.50)
[2017-09-10 03:10] LABS: Hematocrit 32.6 % (37.5-50.1); Immature Platelets 4.8 % (1.1-6.1); Lymphocytes # 0.2 K/mcL (0.6-4.6); Lymphocytes % 2.1 %; Mean Corpuscular HGB Conc 28.2 g/dL (31.6-35.5); Mean Platelet Volume 10.2 fL (9.4-12.4); Monocytes # 0.4 K/mcL (0.0-1.3); Monocytes % 4.2 %; Nucleated Red Blood Cells 0.2 /100 WBC (0); Platelet Count 200 K/mcL (140-400); Red Cell Distribution Width 13.4 % (11.5-14.5); Segmented Neutrophils % 92.4 %
[2017-09-10 03:40] LABS: BUN/Creatinine Ratio 38 (6-26); Blood Urea Nitrogen 24 mg/dL (8-23); Calcium 8.8 mg/dL (8.6-10.3); Carbon Dioxide 49 mEq/L (23-29); Chloride 96 mEq/L (98-107); Glucose 130 mg/dL (70-105); Osmolality,Calculated 304 (280-300); Potassium 4.7 mEq/L (3.5-5.1); Sodium 144 mEq/L (136-145); eGFR For African Americans > 60 (> 60); eGFR For Non-African Americans > 60 (> 60)
[2017-09-10 03:52] LABS: Hypochromasia Present (Not Present); Macrocytosis Present (Not Present); Platelet Estimate Normal (Normal)
[2017-09-10] MEDS: Albuterol 2.5 MG/3 ML NEBULIZER IH SCH ×3 (03:55→16:35)
[2017-09-10 06:27] VITALS: BP 119/90
[2017-09-10] MEDS: *HR* Heparin 5,000 UNIT/ML VIAL SQ SCH ×2 (06:50→14:07)
[2017-09-10] MEDS: Doxycycline 100 MG in 0.9 % Sodium Chloride Mini Bag 100 ML IVPB SCH (06:51)
--- NOTE | 2017-09-10 07:49 | Discharge Summary ---
<Bruce Mcclain - Last Filed: 09/10/17 09:45> Date of Encounter: 09/10/17 Time of Encounter: 07:48 - Discharge Diagnosis (1) Acute on chronic respiratory failure with hypoxia and hypercapnia Priority: Primary Status: Acute (2) Community acquired pneumonia Priority: Secondary Status: Acute Qualifiers: Laterality: right Lung location: lower lobe of lung Qualified Code(s): J18.1 - Lobar pneumonia, unspecified organism (3) Acute exacerbation of COPD with asthma Priority: Secondary Status: Acute (4) Bronchitis Priority: Secondary Status: Acute (5) Accelerated hypertension Priority: Secondary Status: Acute (6) BPH (benign prostatic hyperplasia) Priority: Secondary Status: Chronic Qualifiers: Lower urinary tract symptom presence: unspecified whether lower urinary tract symptoms present Qualified Code(s): N40.0 - Benign prostatic hyperplasia without lower urinary tract symptoms - Discharge Medications Prescriptions: Ipratropium/Albuterol Neb [Duoneb] 3 ml IH Q4HR #30 vial.neb Budesonide/Formoterol 80/4.5 [Symbicort 80/4.5] 2 puff IH BIDR #10 inhaler Cefdinir [Omnicef] 300 mg PO DAILY #7 capsule Doxycycline 100 mg PO BID #14 capsule predniSONE [PredniSONE] 10 mg PO DAILY #14 tablet Home Medications: Albuterol Sulfate [Albuterol Inhaler] 1 - 2 puff IH Q6H PRN 09/06/17 [History] Alfuzosin HCl [Uroxatral] 10 mg PO DAILY 09/06/17 [History] Budesonide/Formoterol 160/4.5 [Symbicort 160/4.5] 2 puff IH BID 09/06/17 [ History] Finasteride [Proscar] 5 mg PO DAILY 09/06/17 [History] Naproxen 500 mg PO BID 09/06/17 [History] Oxycodone HCl/Acetaminophen [Percocet 5-325 mg Tablet] 1 tab PO Q6H PRN [History] Tamsulosin [Flomax] 0.4 mg PO DAILY 09/06/17 [History] Umeclidinium [place] [Incruse Ellipta] 1 puff IH DAILY 09/06/17 [History] Budesonide/Formoterol 80/4.5 [Symbicort 80/4.5] 2 puff IH BIDR #10 inhaler 08/16 [Rx] Cefdinir [Omnicef] 300 mg PO DAILY #7 capsule 09/10/17 [Rx] Doxycycline 100 mg PO BID #14 capsule 09/10/17 [Rx] Ipratropium/Albuterol Neb [Duoneb] 3 ml IH Q4HR #30 vial.neb 09/10/17 [Rx] predniSONE [PredniSONE] 10 mg PO DAILY #14 tablet 09/10/17 [Rx] Allergies/Adverse Reactions: 3 Allergy/AdvReac Type Severity Reaction Status Date / Time tiotropium Allergy Back Pain Verified 09/06/17 00:18 [From Spiriva with [facility]] Date of admission: 09/06/17 00:57 Primary care physician: Liane Mendoza Consults: 09/06/17 00:18 Consult to Cattle Driver [CONS] Routine Reason for SW Consult: patient has oxygen therapy at home 09/08/17 12:26 Consult to Pulmonology [CONS] Routine Consulting Provider: [facility] Reason for Consult: End stage COPD Time Notified: 12:27 Call Completed: Yes Discharging clinician: Bruce Mcclain Anticipated date of discharge: 09/10/17 - Patient Status Disposition: Hospice - Home Condition: Fair Functional capacity at discharge: uses cane/walker Overall status at discharge: patient is not back to baseline - Discharge Instructions Follow Up With: Liane Mckeon MD [Primary Care Provider] - - Diet and Activity Activity: as per physical therapy, increase activity as tolerated, wear oxygen at all times Diet: advance to your usual diet Interval History: Patient evaluated today says that he is still short of breath but is little better from yesterday. He said whenever he is on BiPAP he feels much better. He is still short of breath and not having any chest pain. Having no fever chills, headaches, blurry vision, abdominal pain, changes in bowel movements, pain with urination. Did speak with patient about possibly going into hospice. He says that he would like to go onto hospice as he does need some home health care. He said he would prefer hospice versus home health as he does not want to come back to the hospital. There are no other complaints. There are no overnight event. Hospital course: Mr. Floyd is a 72 year old male with past history of COPD oxygen dependent using 6 L at home and came as a transfer from [facility] complaining of difficulty in breathing worse over the past 2 days. Patient complains of yellowish phlegm and low-grade fevers. At [facility] he desaturated and 87% and had restarted on BiPAP due to severe hypercapnia. ABG was done there pH showed a value of 7.34 PCO2 98 and a PO2 of 56. Hemoglobin was 9.6. Chest x-ray is reported as negative although no images reports having some from [facility]. Blood pressure was 157/80. Heart rate 128. He is in respirator distress is given slight meds on azithromycin prior to coming here. While here patient was continually hypercapnic he was in respirator distress due to this. We did trend wean his oxygen down to 4 L but patient said that he needed increases he was having a hard time breathing on that low oxygen we explained to him the importance of keeping his oxygen saturations around 92% of the patient said that he needed more action. We did place him on BiPAP which he did do very well with. Patient was placed on Solu-Medrol daily. He was on azithromycin and Rocephin. After pulmonology saw the patient they changed to azithromycin to doxycycline. Patient's leukocytosis did better after being on antibiotics Due to patient's advancing COPD we did consult pulmonology who said patient needed to be BiPAP qualified which he did overnight. They wanted to continue bronchodilators and steroids and antibiotics and discharged as he will need a 12 day taper steroids which were ordered. He also will be sent home with antibiotics and also will need a DuoNeb nebulizer. Symbicort and Spiriva should follow up in 8 weeks after discharge with either [facility] or [facility]. Did have a conversation about possibly hospice or home health as the patient would be sent home and he said he does need help at home. He said he would like to pursue hospice as he does not want to come back to the emergency department. Spoke with palliative and they said due to patient's CO2 that he would qualify due to his severe COPD for hospice. Patient is discharged in stable condition with proper follow-up and scripts. - Time Spent with Patient Total time spent providing and/or coordinating discharge services: Greater than 30 minutes - Constitutional Vitals: Temp Pulse Resp BP Pulse Ox 99.0 F 82 17 119/90 98 09/09/17 23:49 09/10/17 06:25 09/10/17 06:25 09/10/17 06:25 09/10/17 06:25 General appearance: Present: A&O X 3, no acute distress, answers questions appropriately - Head Head exam: Present: atraumatic, normocephalic - Eye Eye exam: Present: PERRL, conjuntiva pink, sclera anicteric Pupils: Present: PERRL - Neck Neck exam general surgery: Present: supple, trachea midline. Absent: lymphadenopathy - Respiratory Respiratory exam: Present: decreased breath sounds, prolonged expiratory phase, wheezes (Bilaterally in the bases.). Absent: accessory muscle use, rales, respiratory distress, rhonchi, stridor - Cardiovascular Cardiovascular exam: Present: RRR, +S1, +S2. Absent: diastolic murmur, gallop, rubs, systolic murmur - GI/Abdominal GI/Abdominal exam: Present: normal bowel sounds, soft, no peritoneal signs. Absent: distended, tenderness - Extremities Exam Extremities exam: Present: warm, radial pulses palpable and symmetrical. Absent : calf tenderness, cyanotic, pedal edema - Neurological Exam Neurological exam: Present: CN II-XII intact, oriented X3, no focal deficits. Absent: pronater drift, facial droop, speech deficit - Skin Skin exam: Present: dry, intact <Jadon Prabhakar T - Last Filed: 09/10/17 13:41> Date of Encounter: 09/10/17 Date of admission: 09/06/17 00:57 Primary care physician: Liane Mendoza Consults: 09/06/17 00:18 Consult to Cattle Driver [CONS] Routine Reason for SW Consult: patient has oxygen therapy at home 09/08/17 12:26 Consult to Pulmonology [CONS] Routine Consulting Provider: [facility] Reason for Consult: End stage COPD Time Notified: 12:27 Call Completed: Yes Hospital course: Mr. Floyd is a 72 year old male - Time Spent with Patient Total time spent providing and/or coordinating discharge services: - Constitutional Vitals: Temp Pulse Resp BP Pulse Ox 99.0 F 82 18 119/90 100 09/09/17 23:49 09/10/17 06:25 09/10/17 11:35 09/10/17 06:25 09/10/17 11:35 - Attending Attestation I examined this patient and my medical decision-making was reviewed with the Resident Physician on 09/10/17. I agree with the documented findings, disposition and treatment plan as described except to the extent set forth below. Seen and examined at the bedside 72-year-old male with medical history of chronic respiratory failure on home oxygen, COPD. He was managed for acute on chronic hypoxic and hypercapnic respiratory failure secondary to COPD exacerbation and pneumonia. In addition, he has metabolic alkalosis, hypercapnia and patient is a chronic retainer. Physical examination is remarkable for cachexia, diminished air entry bilaterally with no additional wheezes transmitted breath sounds. NO rhonchi, abdomen is soft and not tender, no pedal edema Labs and imaging reviewed Stable metabolic alkalosis, ABG not repeated Patient was educated about the advanced COPD and poor prognosis with riskof multiple hospital admissions. he is amenable to home hospice, palliative care will enroll him. Stable to be discharged on Home BiPAP, nebs, prednisone taper and antibiotics Follow up with Pulmonology, PCP Rest of details as in the resident physicians documentation
[2017-09-10] MEDS: Finasteride 5 MG TABLET PO SCH (09:37)
[2017-09-10] MEDS: MethylPREDNISolone 40 MG/ML VIAL IVP SCH ×2 (09:38→17:40)
[2017-09-10] MEDS: cefTRIAXone 1,000 MG in Water for inj. (sterile) 10 ML IVP SCH (09:38)
--- NOTE | 2017-09-10 10:12 | Physician Discharge Referral ---
Home Health/Hosp Referral Info Transfer to: Hospice Attending Provider: Scott wilks Provider in Charge Post Discharge: PCP - Diagnosis (1) Acute on chronic respiratory failure with hypoxia and hypercapnia Priority: Primary Status: Acute (2) Community acquired pneumonia Priority: Secondary Status: Acute (3) Acute exacerbation of COPD with asthma Priority: Secondary Status: Acute (4) Bronchitis Priority: Secondary Status: Acute (5) Accelerated hypertension Priority: Secondary Status: Acute (6) BPH (benign prostatic hyperplasia) Priority: Secondary Status: Chronic - Respiratory Orders Oxygen / L per min (6) Smoking Cessation: Smoking cessation has been advised. For more information, call the [place] Tobacco Quit Line at 8-756-HZWD-NOW. - Diet/Nutrition Diet/Nutrition Orders: Regular - Activity Activity Orders: Up ad deshawn - Services Needed Following services are medically necessary services: Nursing, Home Health Aide - Transfer Medications Prescriptions: Ipratropium/Albuterol Neb [Duoneb] 3 ml IH Q4HR #30 vial.neb Budesonide/Formoterol 80/4.5 [Symbicort 80/4.5] 2 puff IH BIDR #10 inhaler Cefdinir [Omnicef] 300 mg PO DAILY #7 capsule Doxycycline 100 mg PO BID #14 capsule predniSONE [PredniSONE] 10 mg PO DAILY #14 tablet Home Medications: Albuterol Sulfate [Albuterol Inhaler] 1 - 2 puff IH Q6H PRN 09/06/17 [History] Alfuzosin HCl [Uroxatral] 10 mg PO DAILY 09/06/17 [History] Budesonide/Formoterol 160/4.5 [Symbicort 160/4.5] 2 puff IH BID 09/06/17 [ History] Finasteride [Proscar] 5 mg PO DAILY 09/06/17 [History] Naproxen 500 mg PO BID 09/06/17 [History] Oxycodone HCl/Acetaminophen [Percocet 5-325 mg Tablet] 1 tab PO Q6H PRN [History] Tamsulosin [Flomax] 0.4 mg PO DAILY 09/06/17 [History] Umeclidinium [place] [Incruse Ellipta] 1 puff IH DAILY 09/06/17 [History] Budesonide/Formoterol 80/4.5 [Symbicort 80/4.5] 2 puff IH BIDR #10 inhaler 08/16 [Rx] Cefdinir [Omnicef] 300 mg PO DAILY #7 capsule 09/10/17 [Rx] Doxycycline 100 mg PO BID #14 capsule 09/10/17 [Rx] Ipratropium/Albuterol Neb [Duoneb] 3 ml IH Q4HR #30 vial.neb 09/10/17 [Rx] predniSONE [PredniSONE] 10 mg PO DAILY #14 tablet 09/10/17 [Rx] Allergies/Adverse Reactions: 3 Allergy/AdvReac Type Severity Reaction Status Date / Time tiotropium Allergy Back Pain Verified 09/06/17 00:18 [From Spiriva with [facility]] Certification: Further, I certify that my clinical findings support that this patient is homebound (i.e. absences from home require considerable and taxing effort and are for medical reasons or scientology services or infrequently or short duration when for other reasons) because: Homebound Reason: Severity of cardiac or pulmonary status limits activity tolerance Attestation: My signature below is to certify that this patient is under my care and that I, or nurse practitioner, or a physician's assistant secretary working with me, has a face-to -face encounter with this patient.
[2017-09-10] MEDS: Budesonide/Formoterol 80/4.5 MDI IH SCH (11:32)
[2017-09-10] MEDS: *HR* LORazepam 2 MG/ML VIAL IVP PRN (14:08)
== END 2017-09-10 18:23 | disposition hospice, home (50) | DRG 189 ==
LOC: 2NENU → SUATTDRO 09-06 00:57
PROVIDERS: ADMIT Internal Medicine; ATTEND Internal Medicine